=== PATIENT | male | born 1940 | race American Indian/Alaskan Native ===

== ENCOUNTER 2017-02-27 14:01 | Observation (INO) | payer MEDICARE, OTHER ==
[2017-02-27 14:17] VITALS: BMI 36.9
--- NOTE | 2017-02-27 14:33 | ED PDOC ---
Arrival/HPI - General Chief Complaint: Palpitations Time Seen by Provider: 02/27/17 14:18 Historian: Patient - History of Present Illness Narrative History of Present Illness (Text): 02/27/17 14:31 A 76 year old male, whose past medical history includes CHF, CAD, anemia and ESRD on hemodialysis on //, sent into the emergency department for tachycardia. Patient reports his heart rate was elevated while receiving dialysis so he was sent to the emergency room for further evaluation. Patient received full dialysis treatment prior to arrival. He reports during his last dialysis 3 days ago his blood pressure was low so he was taken off Ranexa. Patient reports worsening fatigue and shortness of breath since. Patient denies any fever, chills, nausea, vomiting, diarrhea, constipation, abdominal pain, chest pain, headache, dizziness or any other complaints. PMD: [place] Format Proofreader: Dr. Marte Time/Duration: Prior to Arrival Symptom Course: Unchanged Quality: Other Context: Other Past Medical History - Provider Review Nursing Documentation Reviewed: Yes - Infectious Disease Hx of Infectious Diseases: None - Tetanus Immunization Tetanus Immunization: Unknown - Cardiac Hx Cardiac Disorders: Yes Hx Angina: Yes Hx Congestive Heart Failure: Yes Hx Hypertension: Yes - Pulmonary Hx Respiratory Disorders: Yes Hx Asthma: Yes Hx Chronic Obstructive Pulmonary Disease (COPD): Yes - Neurological Hx Neurological Disorder: No - HEENT Hx HEENT Disorder: Yes Hx Cataracts: Yes Hx Glaucoma: Yes - Renal Hx Dialysis: Yes (mwf) Date of Last Dialysis Treatment: 03/18/16 Hx Renal Cancer: Yes Hx Renal Failure: Yes Other/Comment: total left Nephrectomy. Partial Right Nephrectomy - Endocrine/Metabolic Hx Endocrine Disorders: Yes Hx Diabetes Mellitus Type 2: Yes - Hematological/Oncological Hx Blood Disorders: Yes Hx Anemia: Yes Hx Cancer: Yes (prostate, renal) - Integumentary Hx Dermatological Disorder: No - Musculoskeletal/Rheumatological Hx Musculoskeletal Disorders: Yes Hx Arthritis: Yes Hx Falls: No Hx Fractures: Yes (L wrist) Hx Gout: Yes - Gastrointestinal Hx Gastrointestinal Disorders: Yes Hx Gastroesophageal Reflux: Yes Other/Comment: gi bleed - Genitourinary/Gynecological Hx Genitourinary Disorders: Yes Hx Prostate Problems: Yes Other/Comment: Prostate CA- tx with seeding, hormone shots, and radiation therapy as per patient - Psychiatric Hx Psychophysiologic Disorder: No Hx Substance Use: No - Surgical History Hx Cardiac Catheterization: Yes Hx Coronary Stent: Yes ((2011,2013) x3 stents) Other/Comment: Tonsillectomy, Nephrectomy - Anesthesia Hx Anesthesia Reactions: Yes (COMA POST 12/2007) Hx Malignant Hyperthermia: Yes - Suicidal Assessment Feels Threatened In Home Enviroment: No Family/Social History - Physician Review Nursing Documentation Reviewed: Yes Family/Social History: No Known Family HX Smoking Status: Former Smoker Hx Alcohol Use: No Hx Substance Use: No Hx Substance Use Treatment: No Allergies/Home Meds Allergies/Adverse Reactions: Allergies naproxen Allergy (Mild, Verified 03/20/16 17:31) RASH Home Medications: Home Meds Medication Instructions Recorded Confirmed Bimatoprost [Lumigan] 1 drop EACHEYE HS 01/02/12 03/21/16 Carvedilol [Coreg] 12.5 mg PO Q12H 01/02/12 03/21/16 Sevelamer [Renagel] 800 mg PO TID 01/02/12 03/23/16 Dexlansoprazole [Dexilant] 60 mg PO DAILY 05/21/12 03/21/16 Aspirin [Evelia Chewable Aspirin] 81 mg PO DAILY 06/19/12 03/23/16 Ergocalciferol (Vitamin D2) 50,000 iu PO TUE 06/19/12 03/21/16 [Vitamin D2] Folic Acid/Vit B Complex and C 1 tab PO DAILY 06/19/12 03/21/16 [Rosio-Francheska Tablet] Febuxostat [Uloric] 40 mg PO DAILY 06/06/13 03/21/16 Insulin Glargine,Hum.rec.anlog 20 units SUBCUT HS PRN 06/06/13 03/21/16 [Lantus] Montelukast [Singulair] 10 mg PO DAILY 06/27/13 03/21/16 Albuterol HFA [Ventolin HFA 90 0.09 mg IH DAILY 07/06/15 03/21/16 mcg/actuation (8 g)] Cinacalcet [Sensipar] 60 mg PO DAILY 07/06/15 03/23/16 Ferrous Gluconate 324 mg PO TID 07/06/15 03/21/16 Simvastatin [Zocor] 40 mg PO HS 07/06/15 03/21/16 Octreotide Acetate,Mi-Spheres 10 mg IM Q30D 07/28/15 03/21/16 [Sandostatin Lar] Review of Systems - Physician Review All systems were reviewed & negative as marked: Yes - Review of Systems Constitutional: Fatigue. absent: Fevers, Night Sweats Respiratory: SOB Cardiovascular: Other (tachycardia). absent: Chest Pain Gastrointestinal: absent: Abdominal Pain, Constipation, Diarrhea, Nausea, Vomiting Neurological: absent: Headache, Dizziness Physical Exam Vital Signs Reviewed: Yes Vital Signs Temp Pulse Resp BP Pulse Ox 02/27/17 16:05 120 H 20 126/73 02/27/17 15:04 114 H 20 106/68 100 02/27/17 14:37 115 H 20 110/75 98 02/27/17 14:10 97.5 F L 117 H 18 144/75 98 Temperature: Afebrile Blood Pressure: Normal Pulse: Tachycardic Respiratory Rate: Normal Appearance: Positive for: Well-Appearing, Non-Toxic, Comfortable Pain Distress: None Mental Status: Positive for: Alert and Oriented X 3 - Systems Exam Head: Present: Atraumatic, Normocephalic Pupils: Present: PERRL Extroacular Muscles: Present: EOMI Conjunctiva: Present: Normal Mouth: Present: Moist Mucous Membranes Pharnyx: No: ERYTHEMA, EXUDATE, TONSILS ENLARGED Neck: Present: Normal Range of Motion Respiratory/Chest: Present: Good Air Exchange, Rales (Scant rales at bases). No : Respiratory Distress, Accessory Muscle Use Cardiovascular: Present: Normal S1, S2, Tachycardic. No: Murmurs Abdomen: Present: Normal Bowel Sounds. No: Tenderness, Distention, Peritoneal Signs Back: Present: Normal Inspection Upper Extremity: Present: Normal Inspection, NORMAL PULSES. No: Cyanosis, Edema Lower Extremity: Present: Normal Inspection, NORMAL PULSES. No: Edema, CALF TENDERNESS Neurological: Present: GCS=15, CN II-XII Intact, Speech Normal Skin: Present: Warm, Dry, Normal Color. No: Rashes Psychiatric: Present: Alert, Oriented x 3, Normal Insight, Normal Concentration Medical Decision Making ED Course and Treatment: 02/27/17 14:31 Impression: A 76 year old male sent for tachycardia. Patient reports worsening fatigue and shortness of breath. Plan: -- Chest xray -- Labs -- Aspirin -- Reassess and disposition Progress Notes: EKG shows accelerated junction rhythm at 117 BPM with no changes from prior on 03/20/16. Interpreted by me. Report Date : 02/27/2017 15:31:38 Procedure: chest xray Dictator : Melva Hodges MD IMPRESSION: No active pulmonary disease. Left pleural thickening, chronic. 02/27/17 16:23 Labs reviewed, hemoglobin at baseline, Troponin negative, creatinine elevated as expected. Will transfer to telemetry observation under Dr. Joyce for tachycardia, fatigue and shortness of breath. Cardiology consult placed - Lab Interpretations Lab Results: 02/27/17 15:15 02/27/17 15:15 Lab Results 02/27/17 15:15: Sodium 140, Potassium 4.4, Chloride 92 L, Carbon Dioxide 27, Anion Gap 25 H, BUN 32 H, Creatinine 7.6 H, Est GFR ( Amer) 8, Est GFR ( Non-Af Amer) 7, Random Glucose 95, Calcium 11.0 H, Total Bilirubin 0.8, AST 41, ALT 38, Alkaline Phosphatase 103, Lactate Dehydrogenase 497, Total Creatine Kinase 121, Troponin I 0.02 D, NT-Pro-B Natriuret Pep 2090 H, Total Protein 9.1 H, Albumin 4.9 H, Globulin 4.3, Albumin/Globulin Ratio 1.1 02/27/17 15:15: PT 11.8, INR 1.09 H, APTT 29.9 02/27/17 15:15: WBC 10.4 D, RBC 4.04, Hgb 12.6 L D, Hct 38.0 L, MCV 94.1, MCH 31.2, MCHC 33.2, RDW 14.7 H, Plt Count 224, MPV 9.6, Gran % 79.8 H, Lymph % ( Auto) 8.2 L, [place] % (Auto) 8.0 H, Eos % (Auto) 3.7, Baso % (Auto) 0.3, Gran # 8.31 H, Lymph # 0.9 L, [place] # 0.8 H, Eos # 0.4, Baso # 0.03 I have reviewed the lab results: Yes - RAD Interpretation Radiology Orders: 02/27/17 14:33 CHEST PORTABLE [RAD] Stat - Medication Orders Current Medication Orders: Discontinued Medications Aspirin (Aspirin Chewable) 324 mg PO STAT STA Stop: 02/27/17 14:34 Last Admin: 02/27/17 14:39 Dose: 324 mg - Scribe Statement The provider has reviewed the documentation as recorded by the Alex Garcia Provider Alex Attestation: All medical record entries made by the Jazmineibkrzysztof were at my direction and personally dictated by me. I have reviewed the chart and agree that the record accurately reflects my personal performance of the history, physical exam, medical decision making, and the department course for this patient. I have also personally directed, reviewed, and agree with the discharge instructions and disposition. Disposition/Present on Arrival - Present on Arrival Any Indicators Present on Arrival: No History of DVT/PE: No History of Uncontrolled Diabetes: Yes Urinary Catheter: No History of Decub. Ulcer: No History Surgical Site Infection Following: None - Disposition Have Diagnosis and Disposition been Completed?: Yes Diagnosis: Shortness of breath Disposition: HOSPITALIZED Disposition Time: 16:23 Patient Plan: Observation Condition: FAIR Referrals: Genaro Joyce MD [Primary Care Provider] - Follow up with primary Forms: [employer] (Lux[place]bourgish)
[2017-02-27 15:30] LABS: BASO # 0.03 K/mm3 (0.0-2.0); BASO % 0.3 % (0.0-3.0); EOS # 0.4 (0.0-0.7); EOS % 3.7 % (1.5-5.0); GRAN # 8.31 (1.4-6.5); GRAN % 79.8 % (50.0-68.0); LYMPH # 0.9 (1.2-3.4); LYMPH % 8.2 % (22.0-35.0); MEAN CELL VOLUME 94.1 fl (80.0-105.0); MEAN CORPUSCULAR HEMOGLOBIN 31.2 pg (25.0-35.0); MEAN CORPUSCULAR HGB CONC 33.2 g/dl (31.0-37.0); MEAN PLATELET VOLUME 9.6 fl (7.0-11.0); MONO # 0.8 (0.1-0.6); RED CELL DISTRIBUTION WIDTH 14.7 % (11.5-14.5); WHITE BLOOD COUNT 10.4 10^3/ul (4.5-11.0)
--- NOTE | 2017-02-27 15:33 | RAD ---
HISTORY: sob COMPARISON: 03/20/2016 FINDINGS: LUNGS: The lungs are well inflated. The right lung is clear. There are chronic changes in the left lower lobe. PLEURA: Left pleural thickening. No significant pleural effusion identified, no pneumothorax apparent. CARDIOVASCULAR: Normal. OSSEOUS STRUCTURES: No significant abnormalities. VISUALIZED UPPER ABDOMEN: Normal. OTHER FINDINGS: None. IMPRESSION: No active pulmonary disease. Left pleural thickening, chronic.
[2017-02-27 15:44] LABS: ALB/GLOB RATIO 1.1 (1.1-1.8); BILIRUBIN,TOTAL 0.8 mg/dL (0.2-1.3); INR 1.09 (0.93-1.08); PARTIAL THROMBOPLASTIN TIME 29.9 Seconds (23.7-30.8); POTASSIUM 4.4 mmol/L (3.6-5.0); TOTAL PROTEIN 9.1 g/dL (5.8-8.3)
[2017-02-27 15:56] LABS: TROPONIN I 0.02 ng/mL
[2017-02-27] MEDS ORDERED: Albuterol HFA 90 mcg/actuation (8 g) IH PRN (20:29)
--- NOTE | 2017-02-27 20:48 | CARD ---
APPROVED REPORT EKG Measurement Heart [id number] <Conclusion> Sinusl Tachycardia First degree AV Block Abnormal ECG
[2017-02-27] MEDS ORDERED: Albuterol 0.083% Inhal Sol (2.5 mg/3 mL) UD IH PRN (21:01)
[2017-02-27] MEDS ORDERED: Non Formulary Medication (Insulin Glargine, Recombina [Lantus] 15 UNIT) SC SCH (22:00)
[2017-02-27] MEDS: Insulin Detemir 100 units/ml Vial (Levemir) SC SCH (22:03)
[2017-02-28 09:08] LABS: TROPONIN I 0.03 ng/mL
[2017-02-28] MEDS ORDERED: CINACALCET 60 MG PO SCH (10:00)
[2017-02-28 10:24] LABS: HEMATOCRIT 37.5 % (42.0-52.0); MEAN CELL VOLUME 94.9 fl (80.0-105.0); MEAN CORPUSCULAR HEMOGLOBIN 30.9 pg (25.0-35.0); MEAN CORPUSCULAR HGB CONC 32.5 g/dl (31.0-37.0); MEAN PLATELET VOLUME 10.3 fl (7.0-11.0); RED CELL DISTRIBUTION WIDTH 14.8 % (11.5-14.5); WHITE BLOOD COUNT 11.4 10^3/ul (4.5-11.0)
[2017-02-28] MEDS: Insulin Detemir 100 units/ml Vial (Levemir) SC SCH ×2 (10:32→22:31)
[2017-02-28 10:33] LABS: ALB/GLOB RATIO 1.2 (1.1-1.8); BILIRUBIN,TOTAL 0.7 mg/dL (0.2-1.3); CALCIUM 10.4 mg/dL (8.4-10.5); PHOSPHOROUS 6.8 mg/dL (2.5-4.5); POTASSIUM 5.2 mmol/L (3.6-5.0); TOTAL PROTEIN 8.6 g/dL (5.8-8.3)
--- NOTE | 2017-02-28 12:54 | CARD ---
APPROVED REPORT EXAM: Two-dimensional and M-mode echocardiogram with Doppler and color Doppler. INDICATION Dyspnea Cardiac Disease: CAD 2D DIMENSIONS Left Atrium (2D)3.4 (1.6-4.0cm)IVSd1.8 (0.7-1.1cm) LVDd3.5 (3.9-5.9cm)PWd1.4 (0.7-1.1cm) LVDs2.3 (2.5-4.0cm)FS (%) 34.3 % LVEF (%)64.5 (>50%) M-Mode DIMENSIONS Aortic Root2.20 (2.2-3.7cm)Aortic Cusp Exc.0.70 (1.5-2.0cm) Aortic Valve AoV Peak Gulzrldg892.0cm/Ghanshyam Peak GR.9mmHg Mitral Valve E/A ratio0.0 TDI E/Lateral E'0.0E/Medial E'0.0 Tricuspid Valve TR Peak [id number] [id number] Peak Gr.27mmHg [id number] LEFT VENTRICLE The left ventricle is normal size. There is mild to moderate concentric left ventricular hypertrophy. The left ventricular function is normal.EF-60-65% There is normal LV segmental wall motion. Transmitral Doppler flow pattern is Grade II-pseudonormal filling dynamics. No left ventricle thrombus noted on this study. There is no ventricular septal defect visualized. There is no left ventricular aneurysm. There is no mass noted in the left ventricle. RIGHT VENTRICLE The right ventricle is normal size. There is normal right ventricular wall thickness. The right ventricular systolic function is normal. ATRIA The left atrium size is normal. The right atrium size is normal. The interatrial septum is intact with no evidence for an atrial septal defect. AORTIC VALVE The aortic valve is calcified but opens well. There is mild aortic regurgitation. Mild As Vs Aortic Sclerosis There is no aortic valvular vegetation. MITRAL VALVE The mitral valve is thickened but opens well. Mitral annular calcification is mild. Mitral regurgitation is trace. There is no mitral valve stenosis. There is no evidence of mitral valve prolapse. TRICUSPID VALVE The tricuspid valve leaflets are thickened , but open well. There is trace tricuspid regurgitation.RVSP-37 mmof Hg. There is no tricuspid valve stenosis. There is no tricuspid valve prolapse or vegetation. PULMONIC VALVE The pulmonic valve is borderline thickened. There is trace pulmonic valvular regurgitation. There is no pulmonic valvular stenosis. GREAT VESSELS The aortic root is normal in size. The ascending aorta is normal in size. The pulmonary artery is normal. The IVC is normal in size and collapses >50% with inspiration. PERICARDIAL EFFUSION There is no pleural effusion. There is no pericardial effusion. <Conclusion> Normal Chamber Size. EF-60-65% There is mild aortic regurgitation. Mitral regurgitation is trace. There is trace tricuspid regurgitation.RVSP-37 mmof Hg. No Vehgetation or thrombus noted.
--- NOTE | 2017-02-28 20:10 | HP ---
HISTORY OF PRESENT ILLNESS: A 76-year-old black male with history of hypertension, CAD, and end-stage renal disease, on dialysis. The patient has hypertensive renal disease. The patient had gained some fluid over the last couple of weeks. He had approximately 4 to 5 session of dialysis last week, had another dialysis on Monday, was found to be severely short of breath and fatigued, came to the emergency room. The patient has had a history of CAD and GI bleed in the past. The patient was evaluated in the emergency room and admitted for dehydration and severe fatigue, possible exacerbation of CAD. The patient was admitted and seen in consultation by Dr. Salas and also Dr. Marte. PHYSICAL EXAMINATION GENERAL: The patient is well-developed obese, black male in no apparent distress the following morning. HEENT: Essentially within normal limits. HEART: Regular sinus rhythm. CHEST: Clear to auscultation and percussion. ABDOMEN: Obese but benign. EXTREMITIES: Without cyanosis, clubbing or edema. IMPRESSION: Hypertension, dehydration, excessive fluid removal in a 76-year-old black male with history of coronary artery disease, end-stage renal disease, hypertension, and history of gastrointestinal bleed in the past. Genaro Joyce MD
--- NOTE | 2017-02-28 20:20 | CON ---
DATE: 02/28/2017 SERVICE: CARDIOLOGY. CONSULTING PHYSICIAN: Dr. Evangelina Marte. REASON FOR CONSULTATION: Followup shortness of breath, hypotension post dialysis. BRIEF CLINICAL HISTORY: This is a 76-year-old male with a past medical history significant for end-stage renal disease, severe anemia, GI bleed, runs low hemoglobin in the past, history of coronary artery disease, status post inferior wall DE, status post PTCA of RCA. The patient had dialysis in 3 days in a row, Monday, Monday last week and Monday. He became short of breath and the patient decided to come to emergency room. Denies any chest pain, but complained of shortness of breath. PAST MEDICAL HISTORY: Significant for coronary artery disease, status post inferior wall DE, status post code STEMI 09/24/2011, where the patient underwent primary angioplasty with stent deployment, and then the patient had in-stent restenosis, 06/21/2012, when the patient had another angioplasty and balloon angioplasty of PLB1 branch was done and obtuse marginal 1 done, and then the patient had a bare-metal stent, there was a recurrent GI bleed. Since then the patient had multiple episodes of GI bleed, hemoglobin remains 8 now, this patient's hemoglobin improved now. Denies any chest pain or shortness of breath. Previous cardiac workup as follows: The patient had a most recent echocardiography, 10/06/2015, ejection fraction 55% to 60%, right ventricle is moderately dilated, RV systolic pressure mild to moderately reduced, RV systolic function is moderately reduced, RV dilated. Trace mitral regurgitation. Trace to mild aortic regurgitation. Mild to moderate tricuspid regurgitation. RV systolic pressure of 55. Trace to small pericardial effusion at that time, dated echo 10/06/2015. Prior to that, echo on 02/07/2013 does show ejection fraction of 60 to 65%. Mild mitral regurg with mild to moderate tricuspid regurgitation. Last catheterization done on 06/21/2012 does show ejection fraction of 55%, single-vessel disease at the bifurcation of the circumflex. LAD has the same, but no flow obstructing stenosis noted. The patient underwent PTCA of obtuse marginal branch, right coronary artery with moderate caliber vessel. Patent stent noted in RCA. RPD was 99%, successful PTCA of OM1, plain angioplasty was done and bare-metal stent was deployed in PLB1 branch at that time. SOCIAL HISTORY: Denies smoking. Denies any history of alcohol abuse. CURRENT MEDICATIONS: The patient is taking Ranexa 500 b.i.d., insulin, Sensipar, Coreg 12.5, albuterol. REVIEW OF SYSTEMS: As per HPI. PHYSICAL EXAMINATION: VITAL SIGNS: As follows; temperature afebrile, heart rate 80, blood pressure 90/80. HEENT: PERRLA. Extraocular muscles intact. NECK: Supple. No carotid bruit or thyromegaly. CHEST: Clear to auscultation. HEART: S1, S2 regular. ABDOMEN: Soft. EXTREMITIES: Clubbing, cyanosis negative. LABORATORY DATA: EKG shows sinus rhythm, first-degree AV block. Chest x-ray, nothing disease noted. Blood workup as follows, WBC 10.4,hemoglobin 12.3, hematocrit 30, platelet count 224. Chemistry showed sodium 140, potassium 4.1, chloride 92, carbon dioxide 27, anion gap of 25, BUN 32, creatinine is 7.6. IMPRESSION: Shortness of breath, hypotension, history of coronary artery disease, status post stent, history of gastrointestinal bleed. Last time the patient was on Plavix it was discontinued because of gastrointestinal bleed, and aspirin also was held for 4 to 5 days because of the recurrent gastrointestinal bleed. History of multiple coronary intervention, history of recurrent gastrointestinal bleed, end-stage renal disease, on dialysis, obesity, body mass index 36.6 kg/sq m, diabetes, hypertension, now he has hypotension. RECOMMENDATION: We will decrease the dose of Coreg to 3.125 and avoid taking on the day of the dialysis. We will add on CPK, troponin, lipid profile, TSH, and hemoglobin A1c and also get echo. If the troponin remains negative and echo remains okay, the patient will be okay to discharge. Discussed with the patient. We will follow with you. We will decrease the dose of Coreg to 3.125. Since the patient did not have a blood transfusion since GI bleeding, hemoglobin is 12, we will restart baby aspirin 81 mg a day. We will follow. Thank you Dr. Joyce for providing me the opportunity in taking care of the patient. Evangelina Marte MD
--- NOTE | 2017-03-01 02:43 | CON ---
DATE: 02/28/2017 The patient admitted for Dr. Genaro Joyce. REQUESTING PHYSICIAN: Genaro Joyce MD REASON FOR CONSULTATION: To provide dialysis services for the patient known to us who was admitted with palpitations and shortness of breath. HISTORY OF PRESENT ILLNESS: The patient is a 76-year-old black male with a history of end-stage renal disease, on chronic maintenance hemodialysis, initially at [facility], now at [facility] Monday, Monday, and Monday. 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 History of ASHD, status post PTCA stent, history of secondary hyperparathyroidism, COPD, history of complete left nephrectomy for renal cell carcinoma and partial right nephrectomy for renal cell carcinoma, and history of prostate cancer, status post resection. The patient states he required 4 dialysis treatments last week because of hypervolemia. He states that he has been weak, short of breath, and has had palpitations over the last several days. The patient presented to the emergency room for evaluation and is admitted to telemetry for observation. He is scheduled for his routine dialysis tomorrow. His last potassium level was 5.2. Hemoglobin was 12.2. PAST MEDICAL HISTORY: Significant for that of end-stage renal disease, Monday, Monday, and Monday dialysis at [facility]; history of NIDDM; history of anemia secondary to chronic kidney disease and secondary to AVM, with GI bleeding in the past; history of ASHD, status post PTCA stent; history of secondary hyperparathyroidism; COPD; history of renal cell carcinoma, status post total left nephrectomy and partial right nephrectomy; and history of prostate cancer, status post resection. Echocardiogram done today showed an ejection fraction of 64.5% with concentric LVH, aortic insufficiency, mitral regurgitation, and tricuspid regurgitation. MEDICATIONS AT HOME: Include that of Sensipar, Ranexa, Lantus insulin, Coreg, and Ventolin. MEDICATIONS PRESENTLY IN HOSPITAL: Include that of albuterol, Coreg, Ecotrin, Levemir, and Sensipar. The patient is currently taking no binders. ALLERGIES: THE PATIENT IS ALLERGIC TO NAPROSYN. SOCIAL HISTORY: Past history of cigarette smoking, he quit in 1991 and no history of alcohol use. FAMILY HISTORY: Noncontributory. REVIEW OF SYSTEMS: A 10 plus systems reviewed with the patient, all negative except for what as noted above. GENERAL: The patient's appetite and weight have been stable. ENT: Denies any hearing or visual problems. PULMONARY: Positive for shortness of breath as noted above. No history of CHF. Positive history of COPD. CARDIAC: History as noted above. GASTROINTESTINAL: No nausea, vomiting, diarrhea, or constipation. GENITOURINARY: Positive for end-stage renal disease. ENDOCRINE: Positive for diabetes mellitus or complications. MUSCULOSKELETAL: No complaints. NEUROLOGIC: No history of CVA, TIA, seizures, or syncope. HEMATOLOGIC AND ONCOLOGIC: Past history of anemia secondary to chronic kidney disease and secondary to GI bleeding. PSYCHIATRIC: History is negative. PHYSICAL EXAMINATION: GENERAL: The patient is currently seen on telemetry. He is lying comfortable supine in bed. He is presently in normal sinus rhythm with a heart rate of 93 beats per minute. VITAL SIGNS: Blood pressure 100/60, heart rate 93 and regular, temperature 98.5, and respiratory rate is 17. HEENT: Shows him to be normocephalic and atraumatic. Conjunctivae are pink. Sclerae anicteric. Pupils equal and reactive to light and accommodation. Extraocular muscles are intact. Posterior pharynx is normal. NECK: Supple. No neck vein distention. No thyromegaly. No lymphadenopathy. No bruits. CHEST: Clear to auscultation on percussion with no rales, no rhonchi, and no wheezing. CARDIOVASCULAR: Shows irregular rate and rhythm with MR/AR/TR. Distal lower extremity pulses are 1 to 2+ bilaterally. ABDOMEN: Soft. Bowel sounds are normal. No rebound. No guarding. No masses. No organomegaly. BACK: No CVAT. No spinal tenderness. EXTREMITIES: Show a working AV fistula left upper extremity. Positive thrill. Positive bruit. No lower extremity cyanosis, clubbing, or edema. NEUROLOGIC: Shows him to be alert and oriented x3 with no gross focal motor or sensory deficits noted. LABORATORY DATA AND IMAGING: Admitting chest x-ray shows no acute pulmonary disease with pleural thickening on the left side, which is chronic. EKG showed sinus tachycardia with a heart rate of 117 and first-degree A-V block. CBC; white blood cell count 10.4, today 11.4, hemoglobin 12.6, today 12.2. Platelet count is normal 267,000. Coags are normal. Chemistries; sodium 139 with potassium of 5.2 with a chloride of 94, and CO2 of 24. BUN 44 with creatinine of 10.1. Glucose is 108. Calcium 10.4 with phosphorous of 6.8 and magnesium level of 2.0. Troponins are negative. Albumin is 4.7. TSH level is normal at 1.85. Triglycerides are elevated at 258 and total cholesterol was 153. ASSESSMENT: Subjective complaint of shortness of breath. The patient is not anemic, perhaps shortness of breath related to his tachycardia. Echocardiogram shows an excellent ejection fraction at 64.5% with no significant or severe valvular heart disease. 1. End-stage renal disease. The patient is a Monday, Monday, and Monday dialysis patient and will continue receiving dialysis as scheduled. 2. Relative hypotension. The patient request fluid removed with ultrafiltration tomorrow on dialysis. He states he has had or nearest dry weight of 107 kilo. 3. History of anemia. Hemoglobin is excellent at 12.2. 4. History of [id number] diabetes mellitus, currently on insulin. Sugar control is acceptable. 5. History of atherosclerotic heart disease, status post percutaneous transluminal coronary angioplasty stent appears to be stable. No evidence for myocardial ischemia. 6. History of secondary hyperparathyroidism. The patient will continue Sensipar, we will verify with the patient whether or not he is taking binder therapy and as necessary start binder therapy. The patient will continue renal diet. 7. History of chronic obstructive pulmonary disease secondary to past history of cigarette smoking. 8. History of left total nephrectomy, right partial nephrectomy for renal cell carcinoma not at present correct issue. 9. History of prostate cancer, status post surgical resection, not an ongoing issue. PLAN: 1. The patient will receive his routine dialysis tomorrow with essentially no ultrafiltration. We will keep his dry weight of 107 kilo. We will monitor his blood pressures closely. 2. The patient may continue Coreg as long as his blood pressure does not fall any lower. 3. Continue to monitor the patient on telemetry. 4. Renal diet and start phosphorous binders as noted above. 5. Continue Sensipar. 6. As discussed with the patient if he remains stable, he will likely be discharged post-dialysis tomorrow. Thank you for letting me to partake and share in the care of your mutual patient. Chon Barragan MD
[2017-03-01 06:30] VITALS: RESP 18; TEMP 98.5; O2SAT 95
[2017-03-01] MEDS: Insulin Detemir 100 units/ml Vial (Levemir) SC SCH (09:35)
[2017-03-01 09:38] VITALS: BP 142/5
--- NOTE | 2017-03-01 09:49 | PN ---
SUBJECTIVE: A 76-year-old black male admitted to the hospital with shortness of breath, fatigue, and dehydration, status post multiple episodes of hemodialysis to decrease his fluid. The patient was over diuresed, was admitted to the hospital, was rehydrated. PHYSICAL EXAMINATION: VITAL SIGNS: Stable. CHEST: Clear to auscultation and percussion. HEART: Reveals regular sinus rhythm. The patient is improved clinically today. He will have dialysis today, and will be discharged to home in improved condition. The patient was seen in consultation by Dr. Marte. No change in his medication. The patient will be followed as an outpatient. Genaro Joyce MD
[2017-03-01 10:45] VITALS: PULSE 82
[2017-03-01 11:00] LABS: HEMATOCRIT 33.9 % (42.0-52.0); MEAN CELL VOLUME 92.1 fl (80.0-105.0); MEAN CORPUSCULAR HEMOGLOBIN 30.7 pg (25.0-35.0); MEAN CORPUSCULAR HGB CONC 33.3 g/dl (31.0-37.0); RED CELL DISTRIBUTION WIDTH 14.5 % (11.5-14.5); WHITE BLOOD COUNT 9.2 10^3/ul (4.5-11.0)
[2017-03-01 11:06] LABS: CALCIUM 9.5 mg/dL (8.4-10.5)
--- NOTE | 2017-03-01 14:37 | PN ---
DATE: REASON FOR THE CONSULTATION: Followup shortness of breath, hypotension post-dialysis, history of coronary artery disease. SUBJECTIVE: He denies any chest pain, shortness of breath, lying flat in the bed. No further palpation or shortness of breath. OBJECTIVE: GENERAL: Lying flat in the bed, not in apparent distress. VITAL SIGNS: Temperature afebrile, heart rate 94, blood pressure 94/63. HEENT: PERRLA. Extraocular muscles intact. NECK: Supple. No carotid bruit or thyromegaly. CHEST: Clear to auscultation. HEART: S1 and S2, regular. ABDOMEN: Soft. EXTREMITIES: Clubbing and cyanosis negative. LABORATORY DATA: Blood workup as follows; WBC is 11.5, hemoglobin 12.2, hematocrit 37.2, platelet count 267. Chemistry showed sodium 139, potassium 5.2, chloride 94, carbon dioxide 24, anion gap of 26, BUN 44, creatinine 10.1. Troponin 0.02, 0.03, remains negative. The patient underwent echocardiography yesterday that showed ejection fraction of 65%, mild aortic regurgitation, trace mitral regurgitation, tricuspid regurgitation, RV systolic pressure is 37. No vegetation or thrombus noted. IMPRESSION: A 76-year-old male with past medical history significant for obesity, end-stage renal disease, on dialysis, inferior wall myocardial infarction, status post percutaneous transluminal coronary angioplasty twice, history of recurrent gastrointestinal bleed, now hemoglobin and hemoglobin is stable with shortness of breath and hypotension during the dialysis. Echocardiogram most recently shows normal ejection fraction with trace mitral regurgitation and trace tricuspid regurgitation, trace aortic regurgitation, so far no evidence of acute myocardial infarction. RECOMMENDATIONS: We will discontinue aspirin because of recurrent gastrointestinal bleed, no further episode of bleeding, so we will start the baby aspirin daily. Coreg was cut down the dose from 12.5 to 3.125, emphasis made that the patient not to take Coreg on the day of dialysis as the patient remains below 100. We will discontinue telemetry, medical treatment for now. We will follow with you. Thank you Dr. Joyce for providing me the opportunity in taking care of Schuyler Cunha, possibly would discharge soon. Evangelina Marte MD <
--- NOTE | 2017-03-02 08:39 | PN ---
DATE: 03/01/2017 SUBJECTIVE: The patient is seen at the end of dialysis. He is awake, he is alert, and he is comfortable. Denies any pain. He denies any shortness of breath. He denies any palpitations. PHYSICAL EXAMINATION GENERAL: Obese elderly male, seen sitting in chair. VITAL SIGNS: Blood pressure 120/50, heart rate 88, respiratory rate 18-20, temperature 98.5. HEENT: Normocephalic, atraumatic, positive pallor. NECK: Supple, no JVD. LUNGS: Bilateral equal air entry, no rales. CARDIAC: S1 and S2, regular rate and rhythm, no murmur, no rub. ABDOMEN: Obese, distended, soft, nontender, bowel sounds present. EXTREMITIES: 1+ pitting edema. LABORATORY DATA: WBC 9, hemoglobin 11.3, hematocrit 34, platelets 259. Sodium 134, potassium 5.0, chloride 91, CO2 26, BUN 65, creatinine 12.3, glucose 145, calcium 9.5. MEDICATIONS: Coreg 3.125 b.i.d., Ecotrin 81, Levemir, Renagel and Sensipar. ASSESSMENT: 1. Hypotension. 2. Tachycardia. 3. End-stage renal disease. 4. Coronary artery disease, history of percutaneous transluminal coronary angioplasty and stents. 5. Gastrointestinal bleed. PLAN 1. Stable dialysis today. 2. Take lower dose of Coreg as ordered. 3. No antihypertensives prior to dialysis. Maria G Salas MD
== END 2017-03-01 15:26 | disposition home or self-care (01) ==
LOC: ED 14:01 → INTOOBSV 17:20 → ERH 17:20 → 2RNO 21:26
PROVIDERS: ADMIT Internal Medicine; ATTEND Internal Medicine
DX: E86.0 Dehydration (principal); R00.0 Tachycardia, unspecified; N18.6 End stage renal disease; Z99.2 Dependence on renal dialysis; I13.2 Hypertensive heart and chronic kidney disease with heart failure and with stage 5 chronic kidney disease, or end stage renal disease; E11.22 Type 2 diabetes mellitus with diabetic chronic kidney disease; I50.9 Heart failure, unspecified; I25.10 Atherosclerotic heart disease of native coronary artery without angina pectoris; I95.3 Hypotension of hemodialysis; N25.81 Secondary hyperparathyroidism of renal origin; J44.9 Chronic obstructive pulmonary disease, unspecified; D63.1 Anemia in chronic kidney disease; I08.1 Rheumatic disorders of both mitral and tricuspid valves; K55.20 Angiodysplasia of colon without hemorrhage; I25.2 Old myocardial infarction; E66.9 Obesity, unspecified; Z68.36 Body mass index [BMI] 36.0-36.9, adult; Z79.84 Long term (current) use of oral hypoglycemic drugs; Z85.528 Personal history of other malignant neoplasm of kidney; Z90.5 Acquired absence of kidney; Z85.46 Personal history of malignant neoplasm of prostate; Z95.5 Presence of coronary angioplasty implant and graft; Z87.891 Personal history of nicotine dependence
CPT/HCPCS: 36415; 71010; 80048; 80053; 80061; 82550; 82948; 83036; 83615; 83735; 83880; 84100; 84443; 84484; 85025; 85027; 85610; 85730; 93005; 93306; 94640; 94760; 97161; 97530; 99285; G0378; G8978; G8979; G8980

== ENCOUNTER 2018-08-22 07:41 | Emergency (ER) | payer MEDICARE, BC ==
[2018-08-22 07:42] VITALS: BMI 36.9
[2018-08-22 08:02] VITALS: TEMP 97.6
[2018-08-22 09:11] LABS: BASO # 0.01 K/mm3 (0.0-2.0); BASO % 0.1 % (0.0-3.0); EOS % 0.3 % (1.5-5.0); HEMOGLOBIN 11.3 g/dL (14.0-18.0); LYMPH # 0.8 (1.2-3.4); LYMPH % 8.6 % (22.0-35.0); MEAN CELL VOLUME 91.5 fl (80.0-105.0); MEAN CORPUSCULAR HGB CONC 31.7 g/dl (31.0-37.0); MEAN PLATELET VOLUME 10.8 fl (7.0-11.0); MONO # 0.2 (0.1-0.6); MONO % 2.2 % (1.0-6.0); RBC 3.9 10^6/uL (3.5-6.1); RED CELL DISTRIBUTION WIDTH 15.2 % (11.5-14.5)
[2018-08-22 09:15] LABS: INR 1.42; PARTIAL THROMBOPLASTIN TIME 42.2 Seconds (26.9-38.3)
--- NOTE | 2018-08-22 09:19 | ED PDOC ---
Arrival/HPI - General Chief Complaint: GI Problem Historian: Patient - History of Present Illness Narrative History of Present Illness (Text): 08/22/18 09:10 Alphonse Dias is an 78 year old male, with past medical history of end stage renal disease, who presents to the emergency department complaining of diarrhea since 3 days. Patient states having diarrhea 6 times every 4 hours on Monday. Patient describes diarrhea as loose but not watery as well as darkened but not bloody. Patient notes blood this morning, but is unsure if it is due to hemorrhoids or wiping. Patient informs taking peptobismol and imodium with no improvement. Patient notes nausea and cough. Patient also states unresolved and cold and congestion since two weeks ago. Patient's last dialysis was Monday and is due today. Patient is on iron infusion during dialysis. Patient denies changes in diet or recent travel. Patient denies abdominal pain, fevers, chills, vomiting, or any other complaints. Time/Duration: < week (3 days ) Symptom Course: Unchanged Activities at Onset: Light Context: Home Past Medical History - Provider Review Nursing Documentation Reviewed: Yes - Infectious Disease Hx of Infectious Diseases: None - Tetanus Immunization Tetanus Immunization: Unknown - Cardiac Hx Cardiac Disorders: Yes Hx Angina: Yes Hx Congestive Heart Failure: Yes Hx Hypertension: Yes - Pulmonary Hx Respiratory Disorders: Yes Hx Asthma: Yes Hx Chronic Obstructive Pulmonary Disease (COPD): Yes - Neurological Hx Neurological Disorder: No - HEENT Hx HEENT Disorder: Yes Hx Cataracts: Yes Hx Glaucoma: Yes - Renal Hx Dialysis: Yes (mwf) Date of Last Dialysis Treatment: 02/27/17 Hx Renal Cancer: Yes Hx Renal Failure: Yes Other/Comment: total left Nephrectomy. Partial Right Nephrectomy - Endocrine/Metabolic Hx Endocrine Disorders: Yes Hx Diabetes Mellitus Type 2: Yes - Hematological/Oncological Hx Blood Disorders: Yes Hx Anemia: Yes Hx Cancer: Yes (prostate, renal) - Integumentary Hx Dermatological Disorder: No - Musculoskeletal/Rheumatological Hx Musculoskeletal Disorders: Yes Hx Arthritis: Yes Hx Falls: No Hx Fractures: Yes (L wrist) Hx Gout: Yes - Gastrointestinal Hx Gastrointestinal Disorders: Yes Hx Gastroesophageal Reflux: Yes Other/Comment: gi bleed - Genitourinary/Gynecological Hx Genitourinary Disorders: Yes Hx Prostate Problems: Yes Other/Comment: Prostate CA- tx with seeding, hormone shots, and radiation therapy as per patient - Psychiatric Hx Psychophysiologic Disorder: No Hx Substance Use: No - Surgical History Hx Cardiac Catheterization: Yes Hx Coronary Stent: Yes ((2011,2013) x3 stents) Other/Comment: Tonsillectomy, Nephrectomy - Anesthesia Hx Anesthesia: Yes Hx Anesthesia Reactions: Yes (COMA POST 12/2007) Hx Malignant Hyperthermia: Yes - Suicidal Assessment Feels Threatened In Home Enviroment: No Family/Social History - Physician Review Nursing Documentation Reviewed: Yes Family/Social History: No Known Family HX Smoking Status: Former Smoker Hx Alcohol Use: No Hx Substance Use: No Hx Substance Use Treatment: No Allergies/Home Meds Allergies/Adverse Reactions: Allergies naproxen Allergy (Mild, Verified 03/20/16 17:31) RASH Home Medications: Home Meds Medication Instructions Recorded Confirmed Albuterol HFA [Ventolin HFA 90 2 puff IH PRN PRN 02/27/17 02/27/17 mcg/actuation (8 g)] Cinacalcet [Sensipar] 60 mg PO DAILY 02/27/17 02/27/17 Insulin Glargine, Recombina 15 unit SC HS 02/27/17 02/27/17 [Lantus] Ranolazine [Ranexa] 500 mg PO BID 02/27/17 02/27/17 Review of Systems - Physician Review All systems were reviewed & negative as marked: Yes - Review of Systems Constitutional: absent: Fevers, Night Sweats Respiratory: Cough Gastrointestinal: Diarrhea (loose but not watery), Nausea, Other (noticed blood this morning, unsure if hemorrhoids or wiping.). absent: Abdominal Pain, Vomiting, Hematochezia (darkened but not bloody) Physical Exam Vital Signs Reviewed: Yes Vital Signs Temp Pulse Resp BP Pulse Ox 08/22/18 08:01 97.6 F 105 H 19 174/82 H 98 Temperature: Afebrile Blood Pressure: Hypertensive Pulse: Tachycardic Respiratory Rate: Normal Appearance: Positive for: Well-Appearing, Non-Toxic, Comfortable Pain Distress: None Mental Status: Positive for: Alert and Oriented X 3 - Systems Exam Head: Present: Atraumatic, Normocephalic Pupils: Present: PERRL Extroacular Muscles: Present: EOMI Conjunctiva: Present: Normal Mouth: Present: Moist Mucous Membranes Neck: Present: Normal Range of Motion Respiratory/Chest: Present: Clear to Auscultation, Good Air Exchange, Other (shallow breathing). No: Respiratory Distress, Accessory Muscle Use Cardiovascular: Present: Regular Rate and Rhythm, Normal S1, S2. No: Murmurs Abdomen: Present: Normal Bowel Sounds. No: Tenderness, Distention, Peritoneal Signs Back: Present: Normal Inspection Upper Extremity: Present: Normal Inspection, Other (dialysis on left forearm). No: Cyanosis, Edema Lower Extremity: Present: Normal Inspection. No: Edema Skin: Present: Warm, Dry, Normal Color. No: Rashes Psychiatric: Present: Alert, Oriented x 3, Normal Insight, Normal Concentration Medical Decision Making ED Course and Treatment: 08/22/18 09:18 Impression: Patient is an 78 year old male who presents to the emergency department complaining of diarrhea since Monday. Patient notes stool is loose but not watery. Differential Diagnosis included but are not limited to: Plan: -- CT a/p without PO or IV contrast -- Chest X-ray -- EKG -- Labs -- Reassess and disposition Prior Visits: Notes and results from previous visits were reviewed. Progress Notes: - RAD Interpretation Narrative RAD Interpretations (Text): 08/22/18 11:17 Reviewed Chest X-Ray, shows: FINDINGS: LUNGS: No active pulmonary disease. PLEURA: No significant pleural effusion identified, no pneumothorax apparent. CARDIOVASCULAR: No radiographic findings to suggest acute or significant cardiovascular disease. Atherosclerotic calcifications identified primarily aortic arch. OSSEOUS STRUCTURES: No significant abnormalities. VISUALIZED UPPER ABDOMEN: Normal. OTHER FINDINGS: None. IMPRESSION: No active disease. No significant interval change compared to the prior examination(s). ADDENDUM: Focal stable pleural thickening on the left unchanged compared to the prior study 02/27/2017. [Addendum Report Added by Elvin Lawrence MD at 08/22/2018 11:22:20] Radiology Orders: 08/22/18 08:23 CXR [CHEST PORTABLE] [RAD] Stat 08/22/18 08:42 ABD & PELVIS W/O PO OR IV CONT [CT] Stat Experience Planning Strategist: Radiologist - Scribe Statement The provider has reviewed the documentation as recorded by the Scribe Philip Powell All medical record entries made by the Scribe were at my direction and personally dictated by me. I have reviewed the chart and agree that the record accurately reflects my personal performance of the history, physical exam, medical decision making, and the department course for this patient. I have also personally directed, reviewed, and agree with the discharge instructions and disposition. Disposition/Present on Arrival - Present on Arrival Any Indicators Present on Arrival: No History of DVT/PE: No History of Uncontrolled Diabetes: No Urinary Catheter: No History of Decub. Ulcer: No History Surgical Site Infection Following: None - Disposition Have Diagnosis and Disposition been Completed?: Yes Diagnosis: Diarrhea, ESRD (end stage renal disease) on dialysis Disposition: HOME/ ROUTINE Disposition Time: 11:00 Condition: GOOD Discharge Instructions (ExitCare): End Stage Kidney Disease (DC) Additional Instructions: ALPHONSE DIAS SR, thank you for letting us take care of you today. The emergency medical care you received today was directed at your acute symptoms. If you were prescribed any medication, please fill it and take as directed. It may take several days for your symptoms to resolve. Return to the Emergency Department if your symptoms worsen, do not improve, or if you have any other problems. Please contact your doctor or call one of the physicians/clinics you have been referred to that are listed on the Patient Visit Information form that is included in your discharge packet. Bring any paperwork you were given at discharge with you along with any medications you are taking to your follow up visit. Our treatment cannot replace ongoing medical care by a primary care provider outside of the emergency department. Thank you for allowing the [facility] team to be part of your care today. Go to dialysis now. Follow up with your primary care doctor in 2-3 days for re-evaluation and further management. Referrals: Genaro Joyce MD [Family Provider] - Follow up with primary Forms: [email or web address] ([place])
[2018-08-22 09:37] LABS: ALB/GLOB RATIO 1.2 (1.1-1.8); ALBUMIN 4.6 g/dL (3.0-4.8); CALCIUM 8.6 mg/dL (8.4-10.5)
[2018-08-22 10:47] LABS: TROPONIN I 0.02 ng/mL
[2018-08-22 10:52] LABS: CK MB% 1.7 % (2.5-3.0); CK-MB 5.2 ng/mL (0.0-3.6)
--- NOTE | 2018-08-22 11:21 | RAD ---
Date of service: 08/22/2018 HISTORY: cough r/o infiltrate COMPARISON: 02/17/2017 FINDINGS: LUNGS: No active pulmonary disease. PLEURA: No significant pleural effusion identified, no pneumothorax apparent. CARDIOVASCULAR: No radiographic findings to suggest acute or significant cardiovascular disease. Atherosclerotic calcifications identified primarily aortic arch. OSSEOUS STRUCTURES: No significant abnormalities. VISUALIZED UPPER ABDOMEN: Normal. OTHER FINDINGS: None. IMPRESSION: No active disease. No significant interval change compared to the prior examination(s).
[2018-08-22 11:50] VITALS: BP 128/76; PULSE 98; RESP 20; O2SAT 97
--- NOTE | 2018-08-22 16:58 | CARD ---
APPROVED REPORT Date of service: 08/22/2018 EKG Measurement Heart [id number] <Conclusion> Accelerated Junctional rhythm Inferior infarct, age undetermined Abnormal ECG
== END 2018-08-22 11:30 | disposition home or self-care (01) ==
LOC: ED 07:41
DX: R19.7 Diarrhea, unspecified (principal); I12.0 Hypertensive chronic kidney disease with stage 5 chronic kidney disease or end stage renal disease; N18.6 End stage renal disease; Z99.2 Dependence on renal dialysis; Z87.891 Personal history of nicotine dependence; I50.9 Heart failure, unspecified; E11.9 Type 2 diabetes mellitus without complications; J44.9 Chronic obstructive pulmonary disease, unspecified